=== PATIENT | male | born 1980 | race Caucasian/White ===

== ENCOUNTER 2018-01-08 18:53 | Emergency (ER) | payer OTHER, MEDICAID ==
[2018-01-08 19:03] VITALS: BP 129/70
--- NOTE | 2018-01-08 19:13 | EDPHY ---
HPI/HX/ROS/PE/MDM Narrative: CHIEF COMPLAINT: Back pain HPI: The patient is a 37 y/o male with a history of Klinefelter syndrome and heroin and cocaine addiction (sober for 1 year), complaining of low back pain onset 2 days ago. While walking to buy groceries he accidently twisted his lower back and subsequently developed the pain. He denies falling or hitting his back. He took 2 Aleve and 2 Advil today without relief of symptoms. No chest pain, shortness of breath, abdominal pain, urinary or bowel complaints, numbness, paresthesias, fever. REVIEW OF SYSTEMS: Aside from elements discussed in the HPI, a comprehensive 10-point review of systems was reviewed and is negative. PMH: Klinefelter syndrome, heroin and cocaine addiction (sober for 1 year) SOCIAL HISTORY: Lives in [place], single, not-employed PHYSICAL EXAM: General: Patient is alert, possible developmental delay, in no acute distress. ENT: Eyes are normal to inspection. ENT inspection normal. Neck: Normal inspection. Full range of motion. Respiratory: No respiratory distress. Breath sounds normal bilaterally. Cardiovascular: Regular rate and rhythm. Strong peripheral pulses. Normal cap refill. Abdomen: The abdomen is nontender to palpation. There are no peritoneal signs. There are normal bowel sounds. Back: Normal to inspection. Diffuse low back tenderness to light palpation. Skin: Normal color. No rash. Warm and dry. Extremities: Normal appearance. Full range of motion. Neuro: Oriented x3. Normal motor function. Normal sensory function. ED Course: 1929: Reassessed patient; he is requesting pain medications and a muscle relaxer for his low back pain. He does not need laboratory or imaging studies at this time. 1939: I reviewed patient on [facility]. 1944: Reassessed patient and discussed take home bottle of Flexeril. I have advised him to take Aleve for pain and followup with his PCP. Return precautions provided; patient is comfortable with this plan. MDM: This patient presents with atraumatic low back pain but there are several red flags about his presentation. He has a history of substance abuse, a history of mental illness, and specifically asks me for "the strongest possible pain medication." His exam is inconsistent and he jumps off the table with even light touch anywhere on this back. I considered epidural abscess, but there is no focal pain and patient states pain began acutely today after twisting the wrong way. He is afebrile. I will give the patient a short course of muscle relaxants and he will need to follow-up with his PCP for further evaluation. General Time Seen by Provider: 01/08/18 19:12 Initial Vital Signs: Initial Vital Signs Temperature (C) 36.5 C 01/08/18 19:00 Heart Rate 85 01/08/18 19:00 Respiratory Rate 18 01/08/18 19:00 Blood Pressure 129/70 H 01/08/18 19:00 O2 Sat (%) 96 01/08/18 19:00 O2 Delivery Mode Room Air Allergies/Adverse Reactions: No Known Allergies Allergy (Verified 01/08/18 18:59) Home Medications: Medication Instructions Recorded NK [No Known Home Meds] 01/08/18 Departure - Departure Disposition: Home, Routine, Self-Care Clinical Impression: Low back pain Condition: Good Instructions: Cyclobenzaprine (By mouth), Low Back Strain (ED), Acute Low Back Pain (ED), Lower Back Exercises (ED) Additional Instructions: Take Aleve as directed for pain and inflammation. Take Flexeril as prescribed. Follow up with your primary care provider within 72 hours. Return to the emergency department for severe pain, fever, numbness, difficulty walking, change in location or nature of pain or other concerns. Try using a heating pad. Referrals: [facility],. [Clinic] - As per Instructions Report Scribed for: Maximo Sumner Report Scribed by: Kaitlin Baldwin Date of Report: 01/08/18 Time of Report: 19:13 Physician Review and Approval Statement: Portions of this note were transcribed by an ED scribe. I personally performed the history, physical exam, and medical decision making; and confirm the accuracy of the information in the transcribed note.
[2018-01-08] MEDS ORDERED: CYCLOBENZAPRINE 10MG PREPACK#3 BTL TAKEHOME ONE (19:43)
== END 2018-01-08 19:53 | disposition home or self-care (01) ==
DX: M54.5 Low back pain (principal)

== ENCOUNTER 2018-02-23 15:08 | Emergency (ER) | payer MEDICAID | END 2018-02-23 15:14 | disposition left against medical advice (07) | DX: Z53.21 Procedure and treatment not carried out due to patient leaving prior to being seen by health care provider (principal) ==